=== PATIENT | male | born 1970 | race Caucasian/White ===

== ENCOUNTER → 2021-03-06 | Outpatient (CLI) | payer OTHER ==
[~2021-03-06] MED LIST: DRISDOL50000 UNIT PO; FOSAMAX 10 MG T10 MG PO; KEFLEX500 MG PO; LOVENOX SY40 MG/0.4 SQ; NEURONTIN 300300 MG PO; OXYCONTIN20 MG PO; PERCOCET 10-321 EACH PO; PHENERGAN 25 MG25 M1 PO; PRILOSEC20 MG PO; TORADOL 10 MG T10 MG PO; VITAMIN C 500500 MG PO
== END ==
LOC: KOH-I 13:45
DX: M25.571 Pain in right ankle and joints of right foot (principal)
CPT/HCPCS: 73610

== ENCOUNTER → 2021-10-14 | Outpatient (CLI) | payer OTHER | LOC: KOH-I 13:31 | DX: M25.571 Pain in right ankle and joints of right foot (principal); T84.116A Breakdown (mechanical) of internal fixation device of bone of right lower leg, initial encounter | CPT/HCPCS: 73610 ==